=== PATIENT | female | born 1995 | race Caucasian/White ===

== ENCOUNTER 2017-09-23 18:10 | Emergency (ER) | payer OTHER ==
[~2017-09-23] VITALS: Ht 167.6 cm; Wt 57.4 kg
[2017-09-23 18:25] VITALS: BP 132/58; PULSE 88; RESP 16; TEMP 98.5; O2SAT 100
[2017-09-23] MEDS ORDERED: BIRTH CONTROL (18:44)
[2017-09-23] MEDS ORDERED: BACI500O2 TOPICAL (19:18)
[2017-09-23] MEDS ORDERED: BACI500O9 TOPICAL (19:18)
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
== END 2017-09-23 19:35 | disposition home or self-care (01) ==
LOC: PHEFT 18:10
DX: S29.012A Strain of muscle and tendon of back wall of thorax, initial encounter (principal); T23.262A Burn of second degree of back of left hand, initial encounter; Z72.89 Other problems related to lifestyle; W22.12XA Striking against or struck by front passenger side automobile airbag, initial encounter; V89.2XXA Person injured in unspecified motor-vehicle accident, traffic, initial encounter
CPT/HCPCS: 99283